=== PATIENT | male | born 1990 | race Caucasian/White ===

== ENCOUNTER 2024-01-24 11:02 | Emergency (ER) | payer BC, SELFPAY ==
[2024-01-24 11:12] VITALS: BP 147/96; PULSE 108; RESP 18; TEMP 36.1; O2SAT 98; BMI 32.4
--- NOTE | 2024-01-24 11:50 | ED.GENADULT ---
HPI - General Adult General Chief complaint: Rib Pain Stated complaint: rib pain Time Seen by Provider: 01/24/24 11:29 History of Present Illness HPI narrative: This 33-year-old male comes in reporting left lower anterior rib pain from an injury that occurred about 5 days ago. He was on the long board and fell off. He did not have any particular pain that was significant immediately after the injury but over the next couple days he has significant pain in the left lower anterior ribs that is reproduced with certain movements and deep breaths. Related Data Previous Rx's Medication Instructions Recorded ketorolac 10 mg tablet 10 mg PO Q8H 5 days #15 tabs 01/24/24 tramadol 50 mg tablet 50 mg PO Q6H PRN pain #15 tabs 01/24/24 Allergies Allergy/AdvReac Type Severity Reaction Status Date / Time No Known Drug Allergies Allergy Verified 01/24/24 11:16 Review of Systems Status of ROS: Reports: 10 or more systems reviewed and unremarkable except as noted in History and below Narrative: Constitutional: No fevers, no weight gain or loss. Eyes: No discharge. No vision changes. HENT: No congestion, no sore throat, no ear pain. Cardiovascular: No palpitations. Respiratory: No shortness of breath, no wheezes, no cough. Gastrointestinal: No abdominal pain, no vomiting, no diarrhea. Genitourinary: No dysuria, no hematuria. Musculoskeletal: Normal range of motion. Skin: No rashes, no pruritis. Neurological: No dizziness, weakness, sensory change, speech change. Endo/Heme/Allergies: No bruising or bleeding. No polydipsia. Pysch: no suicidality, no anxiety, no insomnia. All other systems reviewed and are negative. Exam Narrative: Exam Narrative: Constitutional: Well-developed, well-nourished, no acute distress. HEENT: Normocephalic, atraumatic. Neck: Normal range of motion. Nontender. Supple. Heart: Regular. No murmurs. Normal rate. Intact distal pulses. Lungs: Clear to auscultation. No wheezes, rhonchi, or rales. Abdomen: Normal bowel sounds. Nontender. No rebound tenderness. Chest wall: No sign of external injury. Pain in the left lower anterior ribs reproducible with palpating this area, with deep breathing, and with certain movements. Genitalia: Deferred. Back: No midline tenderness. Normal range of motion. Extremities: Normal range of motion. No injury. Skin: Intact. No rash. Warm. No erythema or pallor. Neurologic: No altered sensation. No weakness. Alert and oriented. Psychiatric: No suicidality. No anxiety or depression. No insomnia. Nursing notes and vitals signs are reviewed. Const: Vital Signs, click to edit/add: Vital Signs - 24 hr 01/24/24 11:12 Temperature 97 F L Pulse Rate [Pulse Oximeter] 108 H Respiratory Rate 18 Blood Pressure [Ri ght Upper Arm] 147/96 H Pulse Oximetry 98 Oxygen Delivery Me thod Room Air Course Vital Signs Vital signs: Initial Vital Signs Temperature 97 F L 01/24/24 11:12 Temperature Source Temporal Artery Scan 01/24/24 11:12 Pulse Rate 108 H 01/24/24 11:12 Respiratory Rate 18 01/24/24 11:12 Blood Pressure 147/96 H 01/24/24 11:12 Blood Pressure Mean 113 H 01/24/24 11:12 Blood Pressure Position Sitting 01/24/24 11:12 Pulse Oximetry 98 01/24/24 11:12 Oxygen Delivery Method Room Air 01/24/24 11:12 Vital Signs Temperature 97 F L 01/24/24 11:12 Pulse Rate 108 H 01/24/24 11:12 Respiratory Rate 18 01/24/24 11:12 Blood Pressure 147/96 H 01/24/24 11:12 Pulse Oximetry 98 01/24/24 11:12 Oxygen Delivery Method Room Air 01/24/24 11:12 Temperature 97 F L 01/24/24 11:12 Pulse Rate 108 H 01/24/24 11:12 Respiratory Rate 18 01/24/24 11:12 Blood Pressure 147/96 H 01/24/24 11:12 Pulse Oximetry 98 01/24/24 11:12 Oxygen Delivery Method Room Air 01/24/24 11:12 Medical Decision Making MDM Narrative Medical decision making narrative: This patient comes in with a rib injury that occurred about 3 days ago. He does not report any shortness of breath. He is maintaining good oximetry. Lung sounds are normal bilaterally. I did recommend chest x-ray but the patient declined this thinking that he does not likely have broken ribs or lung injury. He did receive an abdominal binder as there were no rib belts available. He also received prescriptions for Toradol and some tablets of tramadol. Discharge Plan Discharge Clinical Impression: Contusion of rib on left side Patient Disposition: Home, Self-Care Condition: Stable Additional Instructions: Activity as tolerated. Use medicines as prescribed. Follow up with MD return if worsening. Prescriptions: New tramadol 50 mg tablet 50 mg PO Q6H PRN (Reason: pain) Qty: 15 0RF ketorolac 10 mg tablet 10 mg PO Q8H 5 Days Qty: 15 0RF Stand Alone Forms: [employer] Info Instructions
== END 2024-01-24 12:08 | disposition home or self-care (01) ==
LOC: ED 11:59
PROVIDERS: Emergency Provider Emergency Medicine Emergency Medical Services
DX: S20.212A Contusion of left front wall of thorax, initial encounter (principal)
CPT/HCPCS: 99283; 99284